=== PATIENT | male | born 1955 | race Caucasian/White ===

== ENCOUNTER 2017-02-12 14:03 | Emergency (ER) | payer BC, OTHER ==
[~2017-02-12] VITALS: Ht 177.8 cm; Wt 83.9 kg
--- NOTE | ~2017-02-12 | EKG ---
[address] [address] ELECTROCARDIOGRAM REPORT Name: AZULLEONELA O Room #: [facility]P [facility]Mag[facility]ena[facility] [id number] Admission: 02/12/17 Attend Phys: Discharge: 02/12/17 Date of : 55 Report #: [id number] THIS REPORT FOR: //name// [facility] ED Test Date: 2017-02-12 Test Time: 14:21:47 Pat Name: LEONELA LIANG Department: Room: Gender: Financial Services Sales Representative: lui : 1955 Requested By: Odalys Dickerson Order Number: [id number] MD: Torsten Hawley Measurements Intervals [place] Rate: 64 P: 51 KS: 204 QRS: 74 QRSD: 90 T: 36 QT: 396 QTc: 409 Interpretive Statements Sinus rhythm No significant abnormality No previous ECG available for comparison Electronically Signed On 02-13-2017 7:07:24 CDT by Torsten Hawley [email or web address] <ELECTRONICALLY SIGNED> By: Tosrten Hawley MD, [facility] 02/13/17 0707 1421 1421 Torsten Hawley MD, FACC /EPI
[2017-02-12 14:03] VITALS: BP 167/91
[2017-02-12] MEDS ORDERED: AMOXICILLIN 50500 M1 PO (14:30)
== END 2017-02-12 14:35 | disposition home or self-care (01) ==
LOC: ER 14:03
DX: K11.8 Other diseases of salivary glands (principal); R68.84 Jaw pain